=== PATIENT | male | born 1945 | race Caucasian/White ===

== ENCOUNTER → 2016-12-12 | Outpatient (CLI) | payer MEDICARE, OTHER ==
[~2016-12-12] MED LIST: Gadobutrol 7.5 mMOL/7.5 ML SDV IVPUSH STA
--- NOTE | 2016-12-12 11:56 | MR ---
EXAMINATION: MR of the brain with and without contrast. TECHNIQUE: Multiplanar and multisequence imaging of the brain without and following the administrati on of 7.5 mL of Gadavist. HISTORY: Atypical facial pain. FINDINGS: Cerebral hemispheres and the deep nuclei are without hemorrhage, mass, edema, gliosis, enhancement o r atrophy. There is mild generalized atrophy. No abnormal diffusion restriction. No extraaxial col lections or hemorrhage. The ventricular system is of normal size and configuration without hydrocephalus. The brainstem and cerebellum are without hemorrhage, mass, edema, gliosis, enhancement or atrophy. Carotid basilar artery flow voids are intact. The otomastoid airspaces are clear. No internal ashley tory canal or cerebellopontine angle masses or enhancement. There is mucosal thickening within the m axillary sinuses bilaterally, right greater than left. There is also mild mucosal thickening within the left frontal sinus with probable obstruction of the left frontal ethmoidal recess. Globes, optic nerves, orbital apices, optic chiasm, optic tracts, and visual cortices are unremarkab le. Pituitary and sella turcica are unremarkable. No meningeal enhancement. Craniocervical juncti on is unremarkable. No siderosis or evidence of vascular malformation. Calvarium is intact. IMPRESSION: 1. No abnormal intracranial findings. 2. Mild paranasal sinus disease.
== END ==
LOC: MW.MRI 08:09
PROVIDERS: ATTEND Psychiatry & Neurology Neuromuscular Medicine
DX: G50.1 Atypical facial pain (principal); J32.4 Chronic pansinusitis
CPT/HCPCS: 70553; A9585

== ENCOUNTER → 2016-12-25 | Outpatient (CLI) | payer MEDICARE, OTHER | LOC: MW.CHNEURO 08:30 | PROVIDERS: ATTEND Psychiatry & Neurology Neuromuscular Medicine | DX: G50.1 Atypical facial pain (principal) | CPT/HCPCS: G0463 ==

== ENCOUNTER 2017-07-02 06:22 | Day surgery (SDC) | payer MEDICARE, OTHER ==
[~2017-07-02 06:22] MED LIST changes: -Gadobutrol 7.5 mMOL/7.5 ML SDV IVPUSH STA; +Lactated Ringers 1,000 ML IV SCH; +ceFAZolin 2 GM in Premix Bag 1 BAG IV ONE
[2017-07-02] MEDS ORDERED: Heparin Sodium 100 Units/ML 3 ML Syringe ONE (07:18)
[2017-07-02] MEDS ORDERED: Bupivacaine 0.5% 30 ML SDV ONE (07:18)
[2017-07-02] MEDS ORDERED: Lidocaine 1% 20 ML MDV ONE (07:19)
--- NOTE | 2017-07-02 07:30 | PCM.PREANE ---
Preanesthetic Assessment - Anesthesia/Transfusion/Family Hx Anesthesia History: Prior Anesthesia Without Reaction Family History of Anesthesia Reaction: No Transfusion History: No Prior Transfusion(s) Intubation History: History of Difficulty Intubation - Review of Systems General: No Symptoms Pulmonary: No Symptoms Cardiovascular: No Symptoms Gastrointestinal: No Symptoms Neurological: No Symptoms Other: Reports: None - Physical Assessment NPO Status Date: 07/01/17 NPO Status Time: 22:30 O2 Sat by Pulse Oximetry: 95 Respiratory Rate: 16 Vital Signs: Last Vital Signs Temp 37.3 C 07/02/17 06:30 Pulse 93 07/02/17 06:30 Resp 16 07/02/17 06:30 BP 121/64 07/02/17 06:30 Pulse Ox 95 07/02/17 06:30 Height: 1.75 m Weight: 84.368 kg ASA Class: 3 Mental Status: Alert & Oriented x3 Airway Class: Mallampati = 4 Dentition: Reports: Normal Dentition, Missing Tooth/Teeth (multiple) Thyro-Mental Finger Breadths: 3 Mouth Opening Finger Breadths: 3 ROM/Head Extension: Limited/Partial Lungs: Clear to Auscultation, Normal Respiratory Effort, Crackles Cardiovascular: Regular Rate, Regular Rhythm - Lab Values: Laboratory Last Values POC Glucose 118 mg/dL (60-110) H 07/02/17 06:51 - Allergies Allergies/Adverse Reactions: Allergies Allergy/AdvReac Type Severity Reaction Status Date / Time No Known Allergies Allergy Verified 06/22/15 16:37 - Blood Blood Available: No - Anesthesia Plan Pre-Op Medication Ordered: None - Acknowledgements Anesthesia Type Planned: General Anesthesia Pt an Appropriate Candidate for the Planned Anesthesia: Yes Alternatives and Risks of Anesthesia Discussed w Pt/Guardian: Yes Pt/Guardian Understands and Agrees with Anesthesia Plan: Yes PreAnesthesia Questionnaire HEENT History: Reports: Other (See Below) Other HEENT History: wears reading glasses, Cardiovascular History: Reports: High Cholesterol, Hypertension Gastrointestinal History: Reports: Colon Polyp Genitourinary History: Reports: Renal Calculus Musculoskeletal History: Reports: Arthritis Endocrine/Metabolic History: Reports: Diabetes, Type II Oncologic (Cancer) History: Reports: Other (See Below) Other Oncologic History: tonsillar sqamous cell cancer - Past Surgical History Head Surgeries/Procedures: Reports: None HEENT Surgical History: Reports: Tonsillectomy Other HEENT Surgeries/Procedures: tonsillar cancer GI Surgical History: Reports: Colonoscopy, Other (See Below) Other GI Surgeries/Procedures: hx exploratory laparotomy for bowel obstruction ( no bowel resected) Male Surgical History: Reports: Ureteral Stent Neurological Surgical History: Reports: Lumbar Spine - SUBSTANCE USE Smoking Status *Q: Current Every Day Smoker (down to 5-6 cigarettes per day) Tobacco Use Within Last Twelve Months: Cigarettes Days Per Week of Alcohol Use: 0 Recreational Drug Use History: No - HOME MEDS Home Medications: Home Meds Hydrochlorothiazide 25 mg PO DAILY 06/22/15 [History] Lisinopril 20 mg PO BID 06/22/15 [History] metFORMIN [Glucophage] 1,000 mg PO BID 06/22/15 [History] Aspirin [[place] Aspirin] 81 mg PO DAILY 06/28/17 [History] Hydrocodone/Acetaminophen [Hydrocodon-Acetamin 7.5-325/] 1 dose PO ASDIRECTED PRN 06/28/17 [History] Lidocaine HCl [Lidocaine HCl Viscous] 1 dose GARGLE ASDIRECTED PRN 06/28/17 [ History] atorvaSTATin Calcium [Atorvastatin Calcium] 20 mg PO DAILY 06/28/17 [History] Diltiazem HCl [Cartia Xt] 240 mg PO DAILY 07/02/17 [History] - CURRENT (IN HOUSE) MEDS Current Meds: Current Medications Lactated Ringer's (Ringers, Lactated) 1,000 mls @ 125 mls/hr IV ASDIRECTED DANII Last Admin: 07/02/17 06:55 Dose: 125 mls/hr Discontinued Medications Bupivacaine HCl (Marcaine 0.5%) Confirm Administered Dose 30 ml .ROUTE .STK-MED ONE Stop: 07/02/17 07:19 Heparin Sodium (Porcine) (Heparin Lock Flush 100 Units/Ml) Confirm Administered Dose 900 unit .ROUTE .STK-MED ONE Stop: 07/02/17 07:19 Cefazolin Sodium/Dextrose 2 gm (/ Premix) 50 mls @ 100 mls/hr IV ONETIME ONE Stop: 07/02/17 06:29 Lidocaine HCl (Xylocaine 1%) Confirm Administered Dose 20 ml .ROUTE .STK-MED ONE Stop: 07/02/17 07:20
[2017-07-02] MEDS ORDERED: Lidocaine 2% 5 ML SDV ONE (07:38)
[2017-07-02] MEDS ORDERED: Rocuronium 10 MG/ML 10 ML Syringe ONE (07:39)
[2017-07-02] MEDS ORDERED: Midazolam 1 MG/ML 2 ML SDV ONE (07:39)
[2017-07-02] MEDS ORDERED: fentaNYL 100 MCG/2 ML SDV ONE (07:39)
[2017-07-02] MEDS ORDERED: Propofol 200 MG/20 ML SDV ONE (07:39)
[2017-07-02] MEDS ORDERED: Neostigmine Methylsulfate 1 MG/ML 5 ML Syringe ONE (07:39)
[2017-07-02] MEDS ORDERED: Succinylcholine/Normal Saline 200 MG/10 ML Syringe ONE (07:39)
[2017-07-02] MEDS ORDERED: Ondansetron 4 MG/2 ML SDV ONE (07:39)
[2017-07-02] MEDS ORDERED: Phenylephrine/Normal Saline 100 MCG/ML 10 ML Syringe ONE (08:28)
[2017-07-02] MEDS ORDERED: ePHEDrine 50 MG/ML SDV ONE (08:43)
[2017-07-02] MEDS ORDERED: fentaNYL 100 MCG/2 ML SDV IVPUSH PRN (09:57)
[2017-07-02] MEDS ORDERED: Acetaminophen/HYDROcodone 325-10 MG Tab PO PRN (10:01)
--- NOTE | 2017-07-02 10:04 | PCM.OPNOTE ---
- General Post-Op/Procedure Note Date of Surgery/Procedure: 07/02/17 Operative Procedure(s): Percutaneous endoscopic gastrostomy tube. Placement of Bard PowerPort. Pre Op Diagnosis: Carcinoma of the tonsil. Post-Op Diagnosis: Same Anesthesia Technique: General ET Tube (ASA III) Primary Surgeon: Chaitanya Colón Secondary Surgeon: Georgie Wilson Reason Campaign Fundraiser Was Necessary: Combined approach. Fluid Replacement, Intraop: 1,600 EBL in mLs: 10 Condition: Good Free Text/Narrative:: Dictation [id number]
[2017-07-02] MEDS ORDERED: Lactated Ringers 1,000 ML IV SCH (10:15)
--- NOTE | 2017-07-02 11:20 | CR ---
EXAMINATION: Portable chest radiograph. HISTORY: Port placement. FINDINGS: The trachea is midline. The cardiomediastinal silhouette is within normal limits. Chronic interstitia l prominence. No focal consolidation or pleural effusion. No pneumothorax. There is a left-sided port a catheter noted with tip in good position. Osseous structures appear unremarkable. IMPRESSION: No acute cardiopulmonary process.
[2017-07-02 11:46] VITALS: BP 115/69
--- NOTE | 2017-07-02 13:51 | OR ---
SURGEON: Chaitanya Colón M.D. DATE OF PROCEDURE: 07/02/2017 OPERATION PERFORMED: Percutaneous endoscopic gastrostomy. CO-SURGEON: Dr. Wilson. ANESTHESIA: General endotracheal. PREOPERATIVE DIAGNOSIS: Newly diagnosed carcinoma of the tonsil, need for feeding tube gastrostomy for upcoming chemoradiotherapy. POSTOPERATIVE DIAGNOSIS: Newly diagnosed carcinoma of the tonsil, need for feeding tube gastrostomy for upcoming chemoradiotherapy. ESTIMATED BLOOD LOSS: 10 mL. INTRAOPERATIVE FLUID REPLACEMENT: 1600 mL of crystalloid. ASA CLASSIFICATION: III. DESCRIPTION OF PROCEDURE: The patient was taken to the operating room and placed on the operating table in the supine position. Time-out was called for appropriate identification of the patient and procedure. Following satisfactory attainment of general endotracheal anesthesia, the Olympus gastroscope was inserted into the mouth and advanced into the stomach. Visualization of the anterior abdominal wall was then obtained by Dr. Wilson. The abdomen was prepped with Betadine solution and sterile drapes were applied. She will dictate the abdominal portion of the procedure. Once the needle and introducer were placed into the stomach, the guidewire was grasped with a snare and brought out through the mouth. The snare and endoscope were and using the wire, the wire and feeding tube were connected. This was then advanced back into the mouth and pulled out through the anterior abdominal wall. The gastroscope was reinserted and position confirmed endoscopically with multiple photos being taken. The PEG tube was then secured to the anterior abdominal wall per Dr. Wilson's dictation. The gastroscope was removed. The patient tolerated this portion of the procedure well. Following placement of a Bard PowerPort, he was taken to recovery room in stable condition. MARK / AMALIA /[id number]
--- NOTE | 2017-07-02 14:00 | OR ---
SURGEON: Chaitanya Colón M.D. DATE OF PROCEDURE: 07/02/2017 OPERATION PERFORMED: Placement of Bard PowerPort via left cephalic vein approach. ANESTHESIA: General endotracheal. ASA CLASSIFICATION: III. PREOPERATIVE DIAGNOSIS: Carcinoma of the tonsil. POSTOPERATIVE DIAGNOSIS: Carcinoma of the tonsil. ESTIMATED BLOOD LOSS: 10 mL. INTRAOPERATIVE FLUID REPLACEMENT: 1600 mL of crystalloid. DESCRIPTION OF PROCEDURE: With the patient now having completed PEG tube placement, the anterior chest was prepped with ChloraPrep solution and sterile drapes were applied. The skin incision was marked out in the left deltopectoral groove. The skin was infiltrated with 1% Xylocaine and 0.5% Marcaine solution. The skin incision was made in the left deltopectoral groove and deepened down to the cephalic vein, which was found to be of good caliber. The vein was mobilized, ligated distally, and encircled proximally with 3-0 Vicryl ties. Small venotomy was made and the heparin flushed PowerPort catheter advanced through the cephalic vein into the subclavian vein and positioned fluoroscopically into the superior vena cava. The catheter was then secured to the vein with 3-0 Vicryl ties. Appropriate site on the anterior chest wall was identified and marked. The skin was again infiltrated with 1% Xylocaine and 0.5% Marcaine solution. The skin incision was made and a subcutaneous pocket was created. With care taken to avoid an air embolus, the catheter was positioned through a subcutaneous tunnel into the anterior chest incision. The catheter was then cut to appropriate length and the heparin flushed PowerPort was brought to the operating table and the port and catheter connected, and secured with the catheter lock. The catheter was noted to flush easily prior to connection and also after the port was connected. The port was then secured to the subcutaneous tissue with interrupted 2-0 silk suture. The wound was inspected for hemostasis and small bleeding sites were electrocoagulated. Both incisions were closed in 2 layers approximating the subcutaneous tissue with 3-0 Polysorb and the skin with subcuticular 4-0 Monocryl. Both incisions were Steri-Stripped and dressed with sterile Tegaderm pads. Sponge, needle, and instrument counts were all correct. The patient tolerated the procedure well and was taken to recovery room in stable condition. MARK HOLLAND /[id number]
--- NOTE | 2017-07-02 19:06 | OR ---
SURGEON: WILLIE HORTON MD DATE OF PROCEDURE: 07/02/2017 PREOPERATIVE DIAGNOSIS: Tonsillar cancer. POSTOPERATIVE DIAGNOSIS: Tonsillar cancer. PROCEDURE PERFORMED: Percutaneous endoscopic gastrostomy tube placement. ANESTHESIA: General endotracheal anesthesia. FLUIDS: See anesthesia record. ESTIMATED BLOOD LOSS: 2 mL. FINDINGS: PEG tube placement in the antrum. COMPLICATIONS: None. INDICATIONS: The patient is a 72-year-old male, who came to see Dr. Chaitanya Colón for PEG tube and Port-A-Cath placement. I was asked to assist during the case for placement of the PEG tube. Please see Dr. Colón's note for further details. PROCEDURE IN DETAIL: The patient was brought into the OR and placed on the OR table in supine position. A time-out was completed verifying the patient's name, age, date of , allergies, and procedure to be performed. The patient was placed in slight amount of neck flexion to assist with general endotracheal anesthesia and intubation. Once the patient was intubated, Dr. Chaitanya Colón placed an Olympus endoscope down into the esophagus under direct visualization. The scope was then advanced into the stomach. In the distal antrum, the scope was pushed against the gastric tissue. This allowed for adequate transillumination on to the abdominal skin. The site of maximal transillumination was marked with a marking pen and the abdomen prepped and draped in usual standard fashion. An 18- gauge spinal needle was then passed through the abdominal wall into the gastric lumen under direct visualization. The trach was then anesthetized with 1% lidocaine plain. A guide needle and vascular sheath were then placed through this same tract under direct visualization. The needle was removed and the sheath left in place. A guidewire was then placed down the sheath and grasped with the endoscope. This was then pulled out through the oropharynx. The PEG tube was looped around this and then pulled with gentle pressure down through the esophagus into the stomach and up through the abdominal wall with gentle pressure. This was advanced until the bumper fit snugly against the antral mucosa. It was located at 4 cm on the skin of the abdominal wall. Dr. Colón placed the endoscope back into the stomach and visualized, then took a photo of the PEG tube in its appropriate location. The PEG tube was then trimmed to fit and a bumper placed at 4 cm at the skin. The bumper was then secured to the skin with interrupted 2-0 Prolene sutures. A drain sponge was left in place and the abdomen allowed to desufflate through the PEG tube at the end of the procedure. Please see Dr. Colón's note for further details. JUSTIN HOLLAND /[id number]
== END 2017-07-02 11:41 | disposition home or self-care (01) ==
LOC: MW.SDS 06:22
PROVIDERS: ATTEND Surgery
DX: C09.9 Malignant neoplasm of tonsil, unspecified (principal); M19.90 Unspecified osteoarthritis, unspecified site; I10 Essential (primary) hypertension; E78.00 Pure hypercholesterolemia, unspecified; E11.9 Type 2 diabetes mellitus without complications; F17.210 Nicotine dependence, cigarettes, uncomplicated; Z79.82 Long term (current) use of aspirin; Z79.84 Long term (current) use of oral hypoglycemic drugs; Z79.899 Other long term (current) drug therapy; Z86.010 Personal history of colon polyps; Z87.442 Personal history of urinary calculi; Z90.89 Acquired absence of other organs; Z98.890 Other specified postprocedural states
CPT/HCPCS: 36561; 43246; 71010; 76000; 82962; J1642; J2250; J2405; J3010; J7120; 00532; J2704

== ENCOUNTER 2017-10-08 08:00 | Day surgery (SDC) | payer MEDICARE, OTHER ==
[~2017-10-08 08:00] MED LIST changes: +Bupivacaine 0.5% 10 ML SDV ONE; +Lidocaine 1% 20 ML MDV ONE; -ceFAZolin 2 GM in Premix Bag 1 BAG IV ONE
[2017-10-08] MEDS ORDERED: Lidocaine 2% 5 ML SDV ONE (08:28)
[2017-10-08] MEDS ORDERED: fentaNYL 100 MCG/2 ML SDV ONE (08:28)
[2017-10-08] MEDS ORDERED: Propofol 200 MG/20 ML SDV ONE (08:28)
[2017-10-08] MEDS ORDERED: Midazolam 1 MG/ML 2 ML SDV ONE (08:28)
--- NOTE | 2017-10-08 08:52 | PCM.PREANE ---
Preanesthetic Assessment - Anesthesia/Transfusion/Family Hx Anesthesia History: Prior Anesthesia Without Reaction Family History of Anesthesia Reaction: No Transfusion History: No Prior Transfusion(s) Intubation History: History of Difficulty Intubation - Review of Systems General: No Symptoms Pulmonary: No Symptoms Cardiovascular: No Symptoms Gastrointestinal: No Symptoms Neurological: No Symptoms Other: Reports: None - Physical Assessment NPO Status Date: 10/07/17 O2 Sat by Pulse Oximetry: 97 Respiratory Rate: 16 Vital Signs: Last Vital Signs Temp 37.0 C 10/08/17 08:42 Pulse 90 10/08/17 08:42 Resp 16 10/08/17 08:42 BP 136/74 10/08/17 08:42 Pulse Ox 97 10/08/17 08:42 Height: 1.75 m Weight: 73.482 kg ASA Class: 2 Mental Status: Alert & Oriented x3 Airway Class: Mallampati = 2 Dentition: Reports: Normal Dentition ROM/Head Extension: Limited/Partial Lungs: Clear to Auscultation, Normal Respiratory Effort Cardiovascular: Regular Rate, Regular Rhythm - Allergies Allergies/Adverse Reactions: Allergies Allergy/AdvReac Type Severity Reaction Status Date / Time No Known Allergies Allergy Verified 10/03/17 15:16 - Anesthesia Plan Pre-Op Medication Ordered: None - Acknowledgements Anesthesia Type Planned: MAC Pt an Appropriate Candidate for the Planned Anesthesia: Yes Alternatives and Risks of Anesthesia Discussed w Pt/Guardian: Yes Pt/Guardian Understands and Agrees with Anesthesia Plan: Yes PreAnesthesia Questionnaire HEENT History: Reports: Other (See Below) Other HEENT History: wears reading glasses, Cardiovascular History: Reports: Blood Clots/VTE/DVT, High Cholesterol, Hypertension Other Cardiovascular History: hx of HTN, on no meds at this time, DVT left upper extremity Gastrointestinal History: Reports: Bowel Obstruction, Colon Polyp Genitourinary History: Reports: Renal Calculus Musculoskeletal History: Reports: Osteoarthritis Neurological History: Reports: None Psychiatric History: Reports: None Endocrine/Metabolic History: Reports: Diabetes, Type II Hematologic History: Reports: None Immunologic History: Reports: None Oncologic (Cancer) History: Reports: Other (See Below) Other Oncologic History: tonsillar sqamous cell cancer Dermatologic History: Reports: None - Past Surgical History Head Surgeries/Procedures: Reports: None HEENT Surgical History: Reports: Tonsillectomy Other HEENT Surgeries/Procedures: tonsillar cancer GI Surgical History: Reports: Colon, Colonoscopy, Other (See Below) Other GI Surgeries/Procedures: hx exploratory laparotomy for bowel obstruction ( no bowel resected), gastrostomy tube placement Male Surgical History: Reports: Ureteral Stent Other Male Surgeries/Procedures: cysto with stent placement Neurological Surgical History: Reports: Lumbar Spine Other Neurological Surgeries/Procedures: back surgery - SUBSTANCE USE Smoking Status *Q: Former Smoker Tobacco Use Within Last Twelve Months: Cigarettes Days Per Week of Alcohol Use: 0 Recreational Drug Use History: No - HOME MEDS Home Medications: Home Meds Ondansetron [Zofran Odt] 8 mg SL ASDIRECTED PRN 10/03/17 [History] fentaNYL [Duragesic] 25 mcg TRDERM ASDIRECTED 10/03/17 [History] - CURRENT (IN HOUSE) MEDS Current Meds: Current Medications Lactated Ringer's (Ringers, Lactated) 1,000 mls @ 125 mls/hr IV ASDIRECTED DANII Last Admin: 10/08/17 08:39 Dose: 125 mls/hr Discontinued Medications Bupivacaine HCl (Sensorcaine-Mpf 0.5%) Confirm Administered Dose 10 ml .ROUTE .STK-MED ONE Stop: 10/08/17 07:24 Fentanyl (Sublimaze) Confirm Administered Dose 100 mcg .ROUTE .STK-MED ONE Stop: 10/08/17 08:29 Lidocaine (Xylocaine-Mpf 2%) Confirm Administered Dose 5 ml .ROUTE .STK-MED ONE Stop: 10/08/17 08:29 Lidocaine HCl (Xylocaine 1%) Confirm Administered Dose 20 ml .ROUTE .STK-MED ONE Stop: 10/08/17 07:24 Midazolam HCl (Versed 1 Mg/Ml) Confirm Administered Dose 2 mg .ROUTE .STK-MED ONE Stop: 10/08/17 08:29 Propofol (Diprivan 20 Ml) Confirm Administered Dose 200 mg .ROUTE .STK-MED ONE Stop: 10/08/17 08:29
[2017-10-08] MEDS ORDERED: Acetaminophen/HYDROcodone 325-10 MG Tab PO PRN (09:57)
[2017-10-08] MEDS ORDERED: fentaNYL 100 MCG/2 ML SDV IVPUSH PRN (09:58)
[2017-10-08] MEDS ORDERED: Lactated Ringers 1,000 ML IV SCH (10:00)
--- NOTE | 2017-10-08 10:00 | PCM.OPNOTE ---
- General Post-Op/Procedure Note Date of Surgery/Procedure: 10/08/17 Operative Procedure(s): Removal of chemotherapy port Pre Op Diagnosis: Squamous cell carcinoma of the tonsil Post-Op Diagnosis: Same Anesthesia Technique: Local, MAC (ASA II) Primary Surgeon: Chaitanya Colón Fluid Replacement, Intraop: 700 EBL in mLs: 5 Condition: Good Free Text/Narrative:: Dictation [id number] CPT CODE [id number]
--- NOTE | 2017-10-08 11:54 | OR ---
SURGEON: Chaitanya Colón M.D. DATE OF PROCEDURE: 10/08/2017 OPERATION PERFORMED: Removal of chemotherapy port. ANESTHESIA: Local MAC. ASA CLASSIFICATION: II. PREOPERATIVE DIAGNOSIS: Carcinoma of the tonsil, desire for port removal. POSTOPERATIVE DIAGNOSIS: Carcinoma of the tonsil, desire for port removal. ESTIMATED BLOOD LOSS: 5 mL. FLUID REPLACEMENT: 700 mL of crystalloid. DESCRIPTION OF PROCEDURE: The patient was taken to the operating room and placed on the operating table in the supine position. Time-out was called for appropriate identification of the patient and procedure. Monitored anesthesia care was provided. The surgical site on the left anterior chest was prepped with DuraPrep solution. Sterile drapes were applied. The skin overlying the port was infiltrated with 10 mL of 1% Xylocaine and 5 mL of 0.5% Marcaine solution. The skin incision was made and deepened through the subcutaneous tissue down to the port. Hemostasis was obtained with the use of electrocautery. The sutures holding the port were removed. The catheter and port assembly were removed. Pressure was held for a total of 2 minutes. No bleeding was noted. The wound was again inspected for hemostasis. The incision was then closed in 2 layers approximating the subcutaneous tissue with 3-0 Vicryl and the skin with subcuticular 4-0 Monocryl. Steri-Strips were placed over the skin incision, which was then dressed with a sterile Tegaderm pad. Sponge, needle, and instrument counts were all correct. The patient tolerated the procedure well. He was taken to recovery room in stable condition. MARK / AMALIA /[id number]
[2017-10-08 12:57] VITALS: BP 119/71
--- NOTE | 2017-10-08 13:18 | PCM.POSTAN ---
POST ANESTHESIA ASSESSMENT - MENTAL STATUS Mental Status: Alert, Oriented - RESPIRATORY Respiratory Status: Respiratory Rate WNL, Airway Patent, O2 Saturation Stable - CARDIOVASCULAR CV Status: Pulse Rate WNL, Blood Pressure Stable - GASTROINTESTINAL GI Status: No Symptoms - POST OP HYDRATION Hydration Status: Adequate & Stable
--- NOTE | 2017-10-08 13:18 | PCM48HPAN ---
Post Anesthesia Note - EVALUATION WITHIN 48HRS OF ANESTHETIC Vital Signs in Normal Range: Yes Patient Participated in Evaluation: Yes Respiratory Function Stable: Yes Airway Patent: Yes Cardiovascular Function Stable: Yes Hydration Status Stable: Yes Pain Control Satisfactory: Yes Nausea and Vomiting Control Satisfactory: Yes Mental Status Recovered: Yes
== END 2017-10-08 11:15 | disposition home or self-care (01) ==
LOC: MW.SDS 08:00
PROVIDERS: ATTEND Surgery
DX: Z45.2 Encounter for adjustment and management of vascular access device (principal); E78.00 Pure hypercholesterolemia, unspecified; I10 Essential (primary) hypertension; M19.90 Unspecified osteoarthritis, unspecified site; E11.9 Type 2 diabetes mellitus without complications; Z85.89 Personal history of malignant neoplasm of other organs and systems; Z92.21 Personal history of antineoplastic chemotherapy; Z86.010 Personal history of colon polyps; Z86.718 Personal history of other venous thrombosis and embolism; Z86.711 Personal history of pulmonary embolism; Z87.442 Personal history of urinary calculi; Z87.891 Personal history of nicotine dependence; Z79.899 Other long term (current) drug therapy; Z90.49 Acquired absence of other specified parts of digestive tract; Z90.89 Acquired absence of other organs; Z98.890 Other specified postprocedural states; Z80.1 Family history of malignant neoplasm of trachea, bronchus and lung
CPT/HCPCS: 36590; 82962; J2250; J3010; J7120; J2704